=== PATIENT | female | born 1960 | race Caucasian/White ===

== ENCOUNTER 2018-03-07 00:01 | Inpatient (IN) | payer MEDICAID, OTHER ==
[~2018-03-07] VITALS: Ht 175.3 cm; Wt 66.2 kg
[2018-03-07 00:55] LABS: BASOPHILS # (AUTO) 0.12 x10^3/uL (0-0.1); BASOPHILS % (AUTO) 1 % (0-1); EOSINOPHILS # (AUTO) 0.09 x10^3/uL (0-0.4); EOSINOPHILS % (AUTO) 1 % (1-7); LYMPHOCYTES # (AUTO) 2.16 x10^3/uL (1-3.4); LYMPHOCYTES % (AUTO) 16 % (22-44); MD NO; MEAN CORPUSCULAR HEMOGLOBIN 31.4 pg (27.0-34.8); MEAN CORPUSCULAR HGB CONC 33.4 g/dL (32.4-35.8); MEAN PLATELET VOLUME 7.9 fL (7.4-10.4); MONOCYTES # (AUTO) 0.81 x10^3/uL (0.2-0.8); MONOCYTES % (AUTO) 6 % (2-9); NEUTROPHILS # (AUTO) 10.29 x10^3/uL (1.8-6.8); NEUTROPHILS % (AUTO) 76 % (42-75); PLATELET COUNT 475 x10^3/uL (130-400); RED BLOOD COUNT 3.73 x10^6/uL (3.82-5.3)
[2018-03-07 01:04] LABS: ALBUMIN 2.5 g/dL (3.4-5.0); ANION GAP 9 mmol/L (5-15); CALCIUM 8.7 mg/dL (8.5-10.1); CHLORIDE 112 mmol/L (98-107); CREATININE 1.78 mg/dL (0.55-1.02)
[2018-03-07] MEDS ORDERED: PROCHLORPERAZINE 5 MG/ML, 2ML ONE (02:07)
[2018-03-07] MEDS ORDERED: PROCHLORPERAZINE 5 MG/ML, 2ML IVPush ONE (02:30)
[2018-03-07 03:30] VITALS: BP 164/69
[2018-03-07 03:39] VITALS: BP 164/79
[2018-03-07] MEDS ORDERED: SODIUM CHLORIDE 0.9% 1,000 ML IV SCH (04:13)
[2018-03-07] MEDS ORDERED: ACETAMINOPHEN 325 MG TABLET PO PRN (04:30)
[2018-03-07] MEDS ORDERED: ONDANSETRON 2MG/ML, 2ML IVPush PRN (04:30)
[2018-03-07] MEDS ORDERED: PROMETHAZINE 25 MG/ML, 1ML IM PRN (04:30)
[2018-03-07] MEDS ORDERED: hydrALAzine 20 MG/ML, 1ML IVPush PRN (04:30)
[2018-03-07] MEDS ORDERED: morphine SULFATE 10 MG/ML, 1ML IVPush PRN (04:30)
[2018-03-07] MEDS ORDERED: OXYcodone IR 5MG TABLET PO PRN (04:30)
[2018-03-07] MEDS ORDERED: DOCUSATE 100 MG CAPSULE PO PRN (04:30)
[2018-03-07] MEDS ORDERED: LABETALOL 5MG/ML, 20ML IVPush PRN (04:30)
[2018-03-07] MEDS ORDERED: ONDANSETRON ODT 4 MG PO PRN (04:30)
[2018-03-07] MEDS: NICOTINE 14MG/24 HR PATCH.TD24 TD SCH (05:22)
[2018-03-07] MEDS: PIPERACILLIN/TAZO/PMX 3.375GM 50 ML IV SCH ×4 (05:34→23:52)
[2018-03-07 06:47] LABS: FREE T4 (FREE THYROXINE) 1.42 ng/dL (0.76-1.46); THYROID STIMULATING HORMONE 5.25 mIU/L (0.358-3.740)
[2018-03-07 07:05] LABS: HEMOGLOBIN A1C 5.3 % (4.2-6.3)
[2018-03-07 07:28] VITALS: BP 146/75
[2018-03-07 09:52] LABS: MICROSCOPIC NOT IND
[2018-03-07 10:22] LABS: CULTURE INDICATED? NO
[2018-03-07 12:56] VITALS: BP 159/73
[2018-03-07] MEDS ORDERED: LIDOCAINE 2%, 20ML ONE (13:43)
[2018-03-07] MEDS ORDERED: FENTANYL PF 100 MCG/2ML ONE ×2 (14:31)
[2018-03-07] MEDS ORDERED: MIDAZOLAM 1 MG/ML, 5ML ONE (14:31)
[2018-03-07] MEDS ORDERED: FLUMAZENIL 0.1 MG/1 ML, 5ML ONE (14:32)
[2018-03-07] MEDS ORDERED: NALOXONE 1 MG/ML, 2ML ONE (14:32)
[2018-03-07] MEDS: D5%-0.9% NACL 1,000 ML IV SCH ×2 (15:46→23:57)
[2018-03-07 19:26] VITALS: BP 147/68
[2018-03-08 02:26] VITALS: BP 128/71
[2018-03-08 04:48] LABS: BASOPHILS # (AUTO) 0.02 x10^3/uL (0-0.1); BASOPHILS % (AUTO) 0 % (0-1); EOSINOPHILS # (AUTO) 0.26 x10^3/uL (0-0.4); EOSINOPHILS % (AUTO) 2 % (1-7); LYMPHOCYTES # (AUTO) 2.65 x10^3/uL (1-3.4); LYMPHOCYTES % (AUTO) 21 % (22-44); MD NO; MEAN CORPUSCULAR HEMOGLOBIN 31.3 pg (27.0-34.8); MEAN CORPUSCULAR HGB CONC 33.5 g/dL (32.4-35.8); MEAN CORPUSCULAR VOLUME 93.5 fL (80-100); MEAN PLATELET VOLUME 7.8 fL (7.4-10.4); MONOCYTES # (AUTO) 0.77 x10^3/uL (0.2-0.8); MONOCYTES % (AUTO) 6 % (2-9); NEUTROPHILS # (AUTO) 9.04 x10^3/uL (1.8-6.8); NEUTROPHILS % (AUTO) 71 % (42-75); PLATELET COUNT 437 x10^3/uL (130-400); RED BLOOD COUNT 3.48 x10^6/uL (3.82-5.3); RED CELL DISTRIBUTION WIDTH 14.1 % (9.6-15.2)
[2018-03-08 05:00] LABS: CHLORIDE 113 mmol/L (98-107)
[2018-03-08 05:08] LABS: ALANINE AMINOTRANSFERASE 16 U/L (12-78); ALBUMIN 2.2 g/dL (3.4-5.0); ALKALINE PHOSPHATASE 75 U/L (45-117); ANION GAP 8 mmol/L (5-15); BILIRUBIN,TOTAL 0.4 mg/dL (0.2-1.0); CALCIUM 7.8 mg/dL (8.5-10.1); CHOL/HDL RATIO 3.8; CHOLESTEROL, TOTAL 99 mg/dL (140-239); CREATININE 1.36 mg/dL (0.55-1.02); HDL CHOL % 26 % (28-40); HDL CHOLESTEROL (DIRECT) 26 mg/dL (40-60); LDL CHOLESTEROL,CALCULATED 60 mg/dL (54-169); LDL/HDL RATIO 2.3 (0.5-3.0); TOTAL PROTEIN 6.3 g/dL (6.4-8.2); TRIGLYCERIDES 65 mg/dL (50-200); VLDL CHOLESTEROL 13 mg/dL (0-25)
[2018-03-08] MEDS: NICOTINE 14MG/24 HR PATCH.TD24 TD SCH (05:43)
[2018-03-08] MEDS: PIPERACILLIN/TAZO/PMX 3.375GM 50 ML IV SCH ×3 (05:46→18:21)
[2018-03-08 07:26] VITALS: BP_SYST 146; BP_SYST 163; BP_DIAS 76; BP_DIAS 81
[2018-03-08] MEDS: D5%-0.9% NACL 1,000 ML IV SCH ×2 (09:07→16:00)
[2018-03-08 12:59] VITALS: BP 145/77
[2018-03-08 19:23] VITALS: BP 146/78
[2018-03-09] MEDS: PIPERACILLIN/TAZO/PMX 3.375GM 50 ML IV SCH ×4 (00:10→19:38)
[2018-03-09 01:47] VITALS: BP 127/71
[2018-03-09] MEDS: NICOTINE 14MG/24 HR PATCH.TD24 TD SCH (05:37)
[2018-03-09 08:00] VITALS: BP 159/81
[2018-03-09 13:14] VITALS: BP 149/79
[2018-03-09 21:42] VITALS: BP 153/74
[2018-03-10] MEDS: PIPERACILLIN/TAZO/PMX 3.375GM 50 ML IV SCH ×2 (02:20→10:57)
[2018-03-10 02:38] VITALS: BP 144/78
[2018-03-10] MEDS: NICOTINE 14MG/24 HR PATCH.TD24 TD SCH (05:44)
[2018-03-10 07:46] VITALS: BP 153/79
[2018-03-10] MEDS ORDERED: NICO-485 TD (11:49)
[2018-03-10] MEDS ORDERED: DOCU-131 PO (11:49)
[2018-03-10] MEDS ORDERED: ACET-1600 PO (11:49)
[2018-03-10] MEDS ORDERED: LACT1CAP24 PO (11:52)
[2018-03-10] MEDS ORDERED: CIPR500T3 PO (11:52)
[2018-03-10] MEDS ORDERED: METR500T PO (11:52)
== END 2018-03-10 13:30 | disposition home or self-care (01) | DRG 391 ==
LOC: ED 01:57 → EDIP 02:27 → 3NW 03:24
PROVIDERS: ADMIT Internal Medicine; ATTEND Internal Medicine
PROC: 0W9G3ZZ Drainage of Peritoneal Cavity, Percutaneous Approach (ICD-10-PCS; principal; 2018-03-07)
DX: K57.80 Diverticulitis of intestine, part unspecified, with perforation and abscess without bleeding (principal); N17.0 Acute kidney failure with tubular necrosis; E44.0 Moderate protein-calorie malnutrition; Z68.21 Body mass index [BMI] 21.0-21.9, adult; F17.200 Nicotine dependence, unspecified, uncomplicated; J44.9 Chronic obstructive pulmonary disease, unspecified; Z82.3 Family history of stroke; Z85.41 Personal history of malignant neoplasm of cervix uteri
CPT/HCPCS: 29515; 36415; 49405; 49406; 80048; 80053; 80061; 81003; 82040; 83036; 83735; 84439; 84443; 85025; 87040; 87070; 87075; 87077; 87186; 87205; 96374; 96375; 99156; 99157; 99285; J2250; J2405; J2543; J3010; J3490; J7042; C1729; C1769; J0780; J2270; J2310; J7030

== ENCOUNTER 2018-06-24 20:41 | Inpatient (IN) | payer OTHER ==
[~2018-06-24] VITALS: Ht 175.3 cm; Wt 65.0 kg
[~2018-06-24 20:41] MED LIST: ACET-1600 PO; AMOX-367 PO; CIPR500T3 PO; DOCU-131 PO; LACT1CAP24 PO; METR500T PO; NICO-485 TD; NYST15CR33 TP
[2018-06-24 21:38] LABS: BASOPHILS # (AUTO) 0.09 x10^3/uL (0-0.1); BASOPHILS % (AUTO) 1 % (0-1); EOSINOPHILS # (AUTO) 0.26 x10^3/uL (0-0.4); EOSINOPHILS % (AUTO) 2 % (1-7); LYMPHOCYTES % (AUTO) 26 % (22-44); MD NO; MEAN CORPUSCULAR HEMOGLOBIN 32.6 pg (27.0-34.8); MEAN CORPUSCULAR HGB CONC 33.7 g/dL (32.4-35.8); MEAN PLATELET VOLUME 7.6 fL (7.4-10.4); MONOCYTES # (AUTO) 0.89 x10^3/uL (0.2-0.8); MONOCYTES % (AUTO) 8 % (2-9); NEUTROPHILS # (AUTO) 7.32 x10^3/uL (1.8-6.8); NEUTROPHILS % (AUTO) 63 % (42-75); PLATELET COUNT 330 x10^3/uL (130-400); RED BLOOD COUNT 3.61 x10^6/uL (3.82-5.3); RED CELL DISTRIBUTION WIDTH 17.6 % (9.6-15.2)
[2018-06-24 21:47] LABS: PROTHROMBIN TIME 10.4 Seconds (9.6-11.5)
[2018-06-24 21:48] LABS: ANION GAP 8 mmol/L (5-15); CALCIUM 8.7 mg/dL (8.5-10.1); CHLORIDE 101 mmol/L (98-107)
[2018-06-24 21:51] LABS: ALANINE AMINOTRANSFERASE 18 U/L (12-78); ALKALINE PHOSPHATASE 88 U/L (45-117); BILIRUBIN,TOTAL 0.4 mg/dL (0.2-1.0); CREATININE 1.07 mg/dL (0.55-1.02); TOTAL PROTEIN 6.9 g/dL (6.4-8.2)
[2018-06-24] MEDS ORDERED: MORPHINE SULFATE 4 MG/ML, 1ML IVPush PRN (23:30)
[2018-06-25] MEDS ORDERED: morphine SULFATE 10 MG/ML, 1ML IVPush PRN
[2018-06-25] MEDS ORDERED: DOCUSATE 100 MG CAPSULE PO PRN
[2018-06-25] MEDS ORDERED: ACETAMINOPHEN 325 MG TABLET PO PRN
[2018-06-25] MEDS ORDERED: GUAIFENESIN/COD200MG-20MG/10ML LIQUID PO PRN
[2018-06-25] MEDS ORDERED: hydrALAzine 20 MG/ML, 1ML IVPush PRN
[2018-06-25] MEDS ORDERED: ONDANSETRON 2MG/ML, 2ML IVPush PRN
[2018-06-25] MEDS ORDERED: D5%-0.9% NACL 1,000 ML IV SCH
[2018-06-25 00:12] VITALS: BP 127/80
[2018-06-25] MEDS: ENOXAPARIN 60 MG/0.6 ML SQ SCH ×3 (00:23→23:41)
[2018-06-25] MEDS: NICOTINE 14MG/24 HR PATCH.TD24 TD SCH ×2 (00:24→23:41)
[2018-06-25 00:29] VITALS: BP 127/80
[2018-06-25 02:00] VITALS: BP 127/80
[2018-06-25 04:37] LABS: BASOPHILS # (AUTO) 0.01 x10^3/uL (0-0.1); BASOPHILS % (AUTO) 0 % (0-1); EOSINOPHILS # (AUTO) 0.36 x10^3/uL (0-0.4); EOSINOPHILS % (AUTO) 4 % (1-7); LYMPHOCYTES # (AUTO) 2.32 x10^3/uL (1-3.4); LYMPHOCYTES % (AUTO) 25 % (22-44); MD NO; MEAN CORPUSCULAR HGB CONC 33.2 g/dL (32.4-35.8); MEAN CORPUSCULAR VOLUME 96.6 fL (80-100); MEAN PLATELET VOLUME 7.9 fL (7.4-10.4); MONOCYTES # (AUTO) 0.93 x10^3/uL (0.2-0.8); MONOCYTES % (AUTO) 10 % (2-9); NEUTROPHILS % (AUTO) 61 % (42-75); PLATELET COUNT 341 x10^3/uL (130-400); RED BLOOD COUNT 3.38 x10^6/uL (3.82-5.3); RED CELL DISTRIBUTION WIDTH 17.4 % (9.6-15.2)
[2018-06-25 04:48] LABS: ANION GAP 7 mmol/L (5-15); CALCIUM 8.2 mg/dL (8.5-10.1); CHLORIDE 105 mmol/L (98-107)
[2018-06-25 06:51] VITALS: BP 119/77
[2018-06-25] MEDS ORDERED: OMNIPAQUE 350 MG/ML, 100ML BOTTLE ONE (10:07)
[2018-06-25 12:00] VITALS: BP 145/83
[2018-06-25 21:30] VITALS: BP 105/71
[2018-06-26 00:48] VITALS: BP 121/72
[2018-06-26 05:02] LABS: BASOPHILS # (AUTO) 0.03 x10^3/uL (0-0.1); BASOPHILS % (AUTO) 0 % (0-1); EOSINOPHILS % (AUTO) 6 % (1-7); LYMPHOCYTES # (AUTO) 2.41 x10^3/uL (1-3.4); LYMPHOCYTES % (AUTO) 27 % (22-44); MD NO; MEAN CORPUSCULAR HEMOGLOBIN 32.9 pg (27.0-34.8); MEAN CORPUSCULAR HGB CONC 33.8 g/dL (32.4-35.8); MEAN CORPUSCULAR VOLUME 97.4 fL (80-100); MEAN PLATELET VOLUME 8.1 fL (7.4-10.4); MONOCYTES # (AUTO) 0.91 x10^3/uL (0.2-0.8); MONOCYTES % (AUTO) 10 % (2-9); NEUTROPHILS # (AUTO) 5.26 x10^3/uL (1.8-6.8); NEUTROPHILS % (AUTO) 58 % (42-75); PLATELET COUNT 354 x10^3/uL (130-400); RED BLOOD COUNT 3.52 x10^6/uL (3.82-5.3); RED CELL DISTRIBUTION WIDTH 17.2 % (9.6-15.2)
[2018-06-26 05:16] LABS: ANION GAP 9 mmol/L (5-15); CALCIUM 8.1 mg/dL (8.5-10.1); CHLORIDE 108 mmol/L (98-107)
[2018-06-26 05:17] LABS: CREATININE 1.05 mg/dL (0.55-1.02)
[2018-06-26 07:02] VITALS: BP 122/73
[2018-06-26 12:55] VITALS: BP 150/90
[2018-06-26] MEDS: ENOXAPARIN 60 MG/0.6 ML SQ SCH ×2 (13:11→23:57)
[2018-06-26 19:59] VITALS: BP 133/79
[2018-06-26] MEDS: NICOTINE 14MG/24 HR PATCH.TD24 TD SCH (23:57)
[2018-06-27 04:05] VITALS: BP 124/68
[2018-06-27 07:52] VITALS: BP 161/61
[2018-06-27] MEDS: ENOXAPARIN 60 MG/0.6 ML SQ SCH (12:20)
[2018-06-27 12:46] VITALS: BP 158/79
[2018-06-27 19:44] VITALS: BP 118/70
[2018-06-27] MEDS: RIVAROXABAN 15 MG TABLET PO SCH (21:49)
[2018-06-27] MEDS: NICOTINE 14MG/24 HR PATCH.TD24 TD SCH (23:49)
[2018-06-28 01:50] VITALS: BP 111/64
[2018-06-28] MEDS: RIVAROXABAN 15 MG TABLET PO SCH (07:57)
[2018-06-28 08:03] VITALS: BP 158/82
[2018-06-28 13:22] VITALS: BP 163/81
[2018-06-28] MEDS ORDERED: RIVA20TA PO (15:15)
[2018-06-28] MEDS ORDERED: RIVA15TA PO (15:15)
[2018-07-19] MEDS ORDERED: RIVAROXABAN 20 MG TABLET PO SCH (09:00)
== END 2018-06-28 15:40 | disposition home or self-care (01) | DRG 300 ==
LOC: ED 21:18 → EDIP 23:08 → 3NE 23:55 → 3NW 06-26 16:45
PROVIDERS: ADMIT Internal Medicine; ATTEND Family Medicine
DX: I82.412 Acute embolism and thrombosis of left femoral vein (principal); E87.1 Hypo-osmolality and hyponatremia; I82.442 Acute embolism and thrombosis of left tibial vein; D63.8 Anemia in other chronic diseases classified elsewhere; F17.210 Nicotine dependence, cigarettes, uncomplicated; J44.9 Chronic obstructive pulmonary disease, unspecified; Z79.01 Long term (current) use of anticoagulants; Z82.3 Family history of stroke; Z90.81 Acquired absence of spleen; Z93.3 Colostomy status; Z98.51 Tubal ligation status; Z82.49 Family history of ischemic heart disease and other diseases of the circulatory system; Z90.49 Acquired absence of other specified parts of digestive tract; Z85.038 Personal history of other malignant neoplasm of large intestine
CPT/HCPCS: 36415; 99285; J7042; 74177; 80048; 80053; 83735; 85025; 85610; G0378; J1650; Q9967